=== PATIENT | male | born 1965 | race Caucasian/White ===

== ENCOUNTER 2017-07-06 09:16 | Inpatient (IN) | payer OTHER ==
--- NOTE | 2017-07-04 15:56 | GHP ---
[f rep st] PREOP HISTORY AND PHYSICAL DATE OF ADMISSION: 07/06/2017 PLANNED DATE OF ADMISSION: He will be an a.m. admission for surgery at [facility] on 07/06/2017. PROBLEM: Right hip arthritis. HISTORY OF PRESENT ILLNESS: The patient is a 52-year-old man admitted for a right hip Julito hip resurfacing arthroplasty. He has had progressive pain in both hips for the past 5 years. His right hip is more painful than the left. He has had to eliminate impact activities. His hips are very pa inful after exercise. He uses to tumeric, which is helpful. He has tried ibuprofen in the past, but it upsets his stomach. He has trouble putting on his shoes and socks. He has not had any cortisone injections. He has failed nonsurgical treatment and is admitted for a right hip [place] hip resu rfacing arthroplasty. PAST MEDICAL HISTORY: Overall, he is in excellent general health. He has exercise-induced asthma. No history of heart disease, stents, DVT, hepatitis, sleep apnea, or bleeding problems. CURRENT MEDICATIONS: He uses 2 different inhalers on a p.r.n. basis. ALLERGIES: Drug allergies: None. Metal allergy: None. Latex allergy: None. SOCIAL HISTORY: The patient is . 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 He does not smoke cigarettes and occasionally drinks alcohol. FAMILY HISTORY: Noncontributory. PHYSICAL EXAMINATION: GENERAL: He is a tall, fit-appearing man. VITAL SIGNS: Height 6 feet 4 inch es. Weight 235 pounds. BMI 28.6. EYES: The conjunctivae and sclerae are clear. Pupils are round and reactive. MOUTH: Good oral hygiene. No loose teeth. CHEST: Clear. HEART: Regular rhythm. No murmurs. EXTREMITIES: Pertinent findings are limited to his right hip. He has full hip extensio n and 100 degrees of flexion. As he flexes the right hip, he develops a 20-degree external rotation contracture and has about 10 additional degrees of external rotation. Abduction 20 degrees. IMAGING: His films show advanced degenerative arthritis in both hips. The right side is worse than the left. He is bone on bone on the right side. IMPRESSION ON ADMISSION: 1. Right hip advanced degenerative arthritis which is very symptomatic. He is prepared for a right hip Julito hip resurfacing arthroplasty. 2. Left hip moderate degenerative arthritis, which is moderately symptomatic. 3. Exercise-induced asthma. PLAN: He will undergo a right hip [place] hip resurfacing arthroplasty. The surgery has been betzaida cribed to him, including the risks, complications, expectations, and recovery time. I have talked to him about the risks of dislocation, femoral neck fracture, infection, and sciatic nerve injury. I duran nevarez discussed with him in detail the risk of elevated metal ions in the blood and in the soft tissues around the hip joint. I have also described to him a conventional total hip replacement and the pro s and cons of both procedures. He understands he is very young for any type of hip arthroplasty and will probably need revision surgery in the future. All his questions have been answered, and he cons ents to surgery. /[id number]/MODL
[~2017-07-06 09:16] MED LIST: NS IV ONE; POVIDONE-IODINE 20 ML in SODIUM CL IRRIG SOLUTION 500 ML IRR ONE; ROPIVACAINE 0.2% 80 MG, EPINEPHrine 0.2 MG, KETOROLAC TROMETHAMINE 30 MG in SYRINGE 0 ML IU ONE; TRANEXAMIC ACID IV ONE
[2017-07-06] MEDS ORDERED: DEXAMETHASONE 4 MG/ML VIAL IVP ONE (09:32)
[2017-07-06] MEDS ORDERED: FAMOTIDINE 20 MG TAB PO ONE (09:32)
[2017-07-06] MEDS ORDERED: ACETAMINOPHEN 325 MG TAB PO ONE (09:32)
[2017-07-06] MEDS ORDERED: ceFAZolin 2 GM/SWFI 2 GM/20 ML SYR IVP ONE (09:32)
[2017-07-06] MEDS ORDERED: GABAPENTIN 300 MG CAP PO ONE (09:32)
[2017-07-06] MEDS ORDERED: LIDOCAINE 1% 2 ML INJ ID PRN (09:34)
[2017-07-06] MEDS ORDERED: LR 1,000 ML IV ONE (09:34)
[2017-07-06] MEDS ORDERED: ceFAZolin 1 GM/5 ML SYR ONE (10:35)
[2017-07-06] MEDS ORDERED: VANCOMYCIN 1 GM VIAL ONE (10:35)
--- NOTE | 2017-07-06 11:06 | PDANEPAE ---
ANE History of Present Illness 52 year old male for right hip surfacing arthroplasty ANE Past Medical History - Cardiovascular History Hx Hypertension: No Hx Arrhythmias: No Hx Chest Pain: No Hx Coronary Artery / Peripheral Vascular Disease: No Hx CHF / Valvular Disease: No Hx Palpitations: No Cardiovascular History Comment: RUNS ELEV BP OCCAS CONTROLLED W/LIFESTYLE - Pulmonary History Hx COPD: No Hx Asthma/Reactive Airway Disease: Yes Hx Recent Upper Respiratory Infection: No Hx Oxygen in Use at Home: No Hx Sleep Apnea: No Sleep Apnea Screening Result - Last Documented: Negative Pulmonary History Comment: EXERCISE & ALLERGY INDUCED - Neurologic History Hx Cerebrovascular Accident: No Hx Seizures: No Hx Dementia: No - Endocrine History Hx Diabetes: No - Renal History Hx Renal Disorders: No - Liver History Hx Hepatic Disorders: No - Neurological & Psychiatric Hx Hx Neurological and Psychiatric Disorders: No - Cancer History Hx Cancer: No - Congenital Disorder History Hx Congenital Disorders: No - GI History Hx Gastrointestinal Disorders: No - Other Health History Other Health History: NEG - Chronic Pain History Chronic Pain: Yes (HIP PAIN) - Surgical History Prior Surgeries: L HAND SURGERY -PLATE & SCREWS ANE Review of Systems Review of Systems: - Exercise capacity METS (RN): 5 METS ANE Patient History - Allergies Allergies/Adverse Reactions: No Known Allergies Allergy (Unverified 06/21/17 17:23) - Home Medications Home Medications: Albuterol [Ventolin Hfa Inhaler] 1 - 2 puffs IH Q4 PRN 06/21/17 [Last Taken ] Budesonide/Formoterol 80/4.5 [Symbicort 80-4.5 Mcg Inhaler] 2 puffs IH BID 06/21 [Last Taken 07/04/17] Herbals/Supplements -Info Only 1 ea PO DAILY 06/21/17 [Last Taken 1 Week Ago ~] Acetaminophen [Tylenol 325mg (*)] 325 mg PO DAILY PRN 07/06/17 [Last Taken 07/05] - NPO status NPO Since - Liquids (Date): 07/06/17 NPO Since - Liquids (Time): 07:00 NPO Since - Solids (Date): 07/05/17 NPO Since - Solids (Time): 19:30 - Smoking Hx Smoking Status: Never smoked - Family Anes Hx Family Hx Anesthesia Complications: NEG ANE Labs/Vital Signs - Vital Signs Blood Pressure: 147/81 Heart Rate: 58 Respiratory Rate: 16 O2 Sat (%): 97 Height: 195.58 cm Weight: 106.594 kg ANE Physical Exam - Airway Mallampati Score: Class 2 Mouth exam: normal dental/mouth exam - Pulmonary Pulmonary: no respiratory distress - Cardiovascular Cardiovascular: regular rate and rhythym - ASA Status ASA Status: II (exercize induced asthma) ANE Anesthesia Plan Anesthesia Plan: MAC, spinal
--- NOTE | 2017-07-06 11:42 | PDHPUP ---
History & Physical Update H&P update statement: This history and physical update is based on an assessment of the patient which was completed after admission or registration (within 24 hours), but prior to the surgery/procedure. H&P update: H&P reviewed & patient examined, no change in patient's condition since H&P completed
[2017-07-06] MEDS ORDERED: PROPOFOL/EMULSION 500 MG/50 ML BOTTLE IV ONE ×2 (11:45→13:52)
[2017-07-06] MEDS ORDERED: MIDAZOLAM 2 MG/2 ML VIAL ONE ×2 (11:45→12:27)
[2017-07-06] MEDS ORDERED: HYDROmorphONE/DILAUDID 1 MG/ML INJ IVP PRN (14:03)
[2017-07-06] MEDS ORDERED: fentaNYL 100 MCG/2 ML INJ IVP PRN (14:03)
[2017-07-06] MEDS ORDERED: DEXAMETHASONE 4 MG/ML VIAL IVP PRN (14:03)
[2017-07-06] MEDS ORDERED: NALOXONE HCL 0.4 MG/ML INJ IVP PRN (14:03)
[2017-07-06] MEDS ORDERED: ONDANSETRON 4 MG/2 ML VIAL IVP PRN ×2 (14:03→14:52)
--- NOTE | 2017-07-06 14:03 | POSTANESTH ---
Post Anesthetic Evaluation Respiratory Status: Normal, Stable Level of Consciousness/Mental Status: Can Participate in Eval Pain Control: Adequate, Prn Tx Ordered Nausea/Vomiting Control: Adequate, Prn Tx Ordered Complications Possibly Related to Anesthesia: None Noted
--- NOTE | 2017-07-06 14:36 | POSTOPPROG ---
Post Op Note Date of Operation: 07/06/17 Surgeon: Cruz Eric Director Of Retail Analytics: Elan Vann/Balaji Newman Anesthesiologist: Luma Anesthesia: GET(General Endotracheal), Spinal Post-op Diagnosis: Right hip severe degenerative arthritis. Procedure: Right hip Julito hip resurfacing arthroplasty. Inf/Abcess present in the surg proc area at time of surgery?: No EBL: 100-500
[2017-07-06] MEDS ORDERED: ALBUTEROL 200 PUFFS/18 GM MDI IH PRN (14:51)
[2017-07-06] MEDS ORDERED: NS 500 ML IV PRN (14:52)
[2017-07-06] MEDS ORDERED: TEMAZEPAM 15 MG CAP PO PRN (14:52)
[2017-07-06] MEDS ORDERED: BISACODYL 10 MG SUPP PR PRN (14:52)
[2017-07-06] MEDS ORDERED: CYCLOBENZAPRINE 10 MG TAB PO PRN (14:52)
[2017-07-06] MEDS ORDERED: METOCLOPRAMIDE 10 MG/2 ML VIAL IVP PRN (14:52)
[2017-07-06] MEDS ORDERED: diphenhydrAMINE 25 MG CAP PO PRN (14:52)
[2017-07-06] MEDS ORDERED: PROMETHAZINE HCL 25 MG/ML INJ IVP PRN (14:52)
[2017-07-06] MEDS ORDERED: LACTULOSE 20 GM/30 ML UDCUP PO PRN (14:52)
[2017-07-06] MEDS ORDERED: PROMETHAZINE HCL 25 MG SUPPR PR PRN (14:52)
[2017-07-06] MEDS ORDERED: KETOROLAC 30 MG/1 ML SDV IVP PRN (14:52)
[2017-07-06] MEDS ORDERED: DIPHENOXYLATE/ATROPINE LOMOTIL 1 TAB PO PRN (14:52)
[2017-07-06] MEDS ORDERED: MAGNESIUM HYDROXIDE 30 ML UDCUP PO PRN (14:52)
[2017-07-06] MEDS ORDERED: ONDANSETRON DISINTEGRATING 4 MG TAB PO PRN (14:52)
[2017-07-06] MEDS ORDERED: POLYETHYLENE GLYCOL 3350 17 GM PKT PO PRN (14:52)
[2017-07-06] MEDS ORDERED: LR 1,000 ML IV SCH (15:00)
--- NOTE | 2017-07-06 16:04 | GOP ---
[f rep st] OPERATIVE REPORT DATE OF OPERATION: 07/06/2017 SURGEON: Cruz Eric MD COST CONTROL ANALYST: Elan Vann CFA and Balaji Newman. ANESTHESIA: Combination of Marcaine, spinal, and IV sedation by Dr. Corby eG. PREOPERATIVE DIAGNOSIS: Right hip severe degenerative arthritis. POSTOPERATIVE DIAGNOSIS: Right hip severe degenerative arthritis. PROCEDURE PERFORMED: Right hip Julito hip resurfacing arthroplasty. FINDINGS: DESCRIPTION OF PROCEDURE: The patient was given 2 g of IV Ancef within 60 minutes of surgery. He al so received IV tranexamic acid at a dose of 20 mg/kg. He was placed on the operating room table and given spinal anesthesia with Marcaine by Dr. Ge. He was then placed supine and given IV sedati on. A Gonzalez catheter was not used. He wore a ABBE stocking and an SCD on the nonoperative leg. He was rolled to the left lateral decubitus position. An axillary roll was used, and all pressure po ints were carefully padded. The position was secured with the pegboard table attachment. I was care ful to lock his pelvis in a vertical position. His perineum was isolated with plastic adhesive drape s. He is big muscular man which made positioning difficult. Height 6 feet 4 inches. Weight 235 karley nds. The [employer] time-out was performed to verify the correct patient identity and the c orrect surgical side and site. The [place] time-out was also performed. I made an 8-inch straight oblique posterolateral hip skin incision. Subcutaneous tissues were sharpl y divided and hemostasis was obtained using electrocautery. The fascia israel was identified and split along the axis of its fibers. I then curved posteriorly and proximally, and split the fascia of the gluteus eugenio and bluntly split the muscle fibers in line with their orientation. His sciatic ner ve was identified and protected throughout the procedure. The Charnley self-retaining retractor was inserted. The external rotators and the posterior hip capsule were divided as separate layers at the base of the femoral neck, tagged, and reflected posteriorly. The gluteus eugenio tendon was divided and tagged in order to improve exposure and release tension on the sciatic nerve. His hip was dislocated posteriorly. I used a sizing gauge to check the diameter of the neck and conc luded that the 54 mm was the proper head size. I performed a complete circumferential capsulotomy. I was able to retract the femoral head anteriorly and superiorly, and hold it out of place with appro priate retractors. The remnant of his damaged labrum was excised. His acetabulum was reamed sequent ially up to 60 mm. I selected the [place] monoblock porous-coated acetabular component with an outside diameter of 60 mm. This was firmly impacted and was a very tight fit. I was careful to determine proper inclinati on and anteversion. I used the transverse acetabular ligament and other acetabular bony landmarks to help me determine proper cup orientation. I was careful to leave a good lip of bone and capsule ext ending beyond the anterior-inferior lip of the metal cup. Then returned to preparation of the femoral head. Using appropriate jigs and guides, I inserted a gu brayan pin into the femoral head and neck. I was careful to position in such a way that there would be no notching of the neck. The large sterile metal goniometer was used to check the neck-shaft angle. I reamed over the guide pin and inserted the reaming guide. I then used the cylindrical reamer down to the head and neck junction. This was followed by the flat reamer and the chamfer reamer. The he ad was sized for 54 mm. There was no impingement or damage to the neck. He had some large, hard ant erior neck osteophytes which I trimmed with a rongeur. I drilled a small hole in the lesser trochant er and inserted a suction cannula to create negative pressure in the medullary canal. Small holes we re drilled on the flat and chamfer surfaces of the prepared head for cement anchors. The head was thoroughly cleaned with the pulsating lavage and carefully dried. I used the CarboJet d evice to blow dry the cancellous surfaces. A single batch of Simplex cement with tobramycin was mixe d. At about 50 seconds, I poured the liquid cement into the head component, inserted it onto the fem oral head and impacted it into place. Excess cement was removed before it hardened. The acetabulum was irrigated, cleaned, and inspected, and the hip was reduced. Stability and range o f motion were checked. I placed my finger along the anterior aspect of the acetabular component and flexed the hip to 110 degrees. There was no anterior impingement. The suction cannula in the lesser trochanter was removed. The wound was thoroughly irrigated with a dilute Betadine solution. 40 mL of the joint anesthetic cocktail were injected into the capsule, the deep musculature, and the subcut aneous tissues along the skin edges. His sciatic nerve was reinspected and looked unharmed. The external rotators and the posterior hip c apsule were repaired with two #2 FiberWire sutures through drill holes in the greater trochanter. Th e gluteus eugenio tendon was repaired with two #2 [id number] FiberWire sutures. The fascia israel was repaired first with 2 interrupted [id number] #2 FiberWire sutures, followed by a running #2 barbed Ethicon Stratafix PDO suture. Subcutaneous tissues were closed with a running 0 barbed Ethic on Stratafix Monoderm suture. The skin was closed with a running 3-0 barbed Ethicon Stratafix Monode rm subcuticular suture. The skin edges were reapproximated and sealed with Dermabond glue. The woun d was covered with a large sterile Mepilex waterproof dressing. The estimated blood loss was 400 mL. I used the Julito hip resurfacing system. The acetabular component was 60 mm in diameter and pre ss-fit. The femoral head was 54 mm and cemented. He was awakened from anesthesia and rolled to the supine position on his [facility]. A long-leg compressive stocking and SCD were applied to the operative leg. He wore a stocking and an SCD on th e opposite leg during the procedure. An abduction pillow was placed between his knees. He was awakened from anesthesia, and transferred to his [facility] and taken to PACU in satisfac tory condition. There were no recognized intraoperative complications. The sponge and needle count were correct on 2 occasions. Elan Vann and Balaji Newman acted as surgical assistants. Their assistance was a medical necess ity for safe completion of the procedure. Copy requested to: Dr. Cruz Galvni [place] /[id number]/MODL
[2017-07-06] MEDS: ACETAMINOPHEN 325 MG TAB PO SCH ×2 (18:06→23:58)
[2017-07-06] MEDS: FAMOTIDINE 20 MG TAB PO SCH (20:07)
[2017-07-06] MEDS: SENNOSIDES/DOCUSATE SODIUM TAB PO SCH (20:07)
[2017-07-06] MEDS: TRANEXAMIC ACID 650 MG TAB PO SCH (20:07)
[2017-07-06] MEDS: ASPIRIN EC 325 MG TAB PO SCH (20:08)
[2017-07-06] MEDS: traMADol 50 MG TAB PO PRN (20:17)
[2017-07-06] MEDS: ceFAZolin 2 GM/DEXTROSE 100 ML IV SCH (20:17)
[2017-07-06] MEDS: oxyCODONE IR 5 MG TAB PO PRN (21:41)
[2017-07-06] MEDS: BUDESONIDE/FORMOTEROL 80/4.5 60 PUFFS/MDI IH SCH (21:42)
[2017-07-06 23:15] VITALS: PULSE 56
[2017-07-07] MEDS: TRANEXAMIC ACID 650 MG TAB PO SCH ×2 (03:46→11:17)
[2017-07-07] MEDS: oxyCODONE IR 5 MG TAB PO PRN (03:48)
[2017-07-07 04:57] VITALS: TEMP 98.1
[2017-07-07] MEDS: ceFAZolin 2 GM/DEXTROSE 100 ML IV SCH (06:42)
[2017-07-07] MEDS: ACETAMINOPHEN 325 MG TAB PO SCH ×2 (06:42→11:18)
[2017-07-07] MEDS: traMADol 50 MG TAB PO PRN (06:55)
--- NOTE | 2017-07-07 07:37 | SOAPPROG ---
SOAP Progress Note Assessment/Plan: Assessment: Afebrile. Awake and alert. He has been walking in the room. Voiding spontaneously. Postop films look excellent. Postop hemoglobin hematocrit are good. Sciatic nerve intact. Plan: Up with physical therapy. Discharge later today. 07/07/17 07:36 Objective: Vital Signs Temp Pulse Resp BP Pulse Ox 36.7 C 56 L 18 114/71 95 07/07/17 04:00 07/06/17 23:15 07/07/17 04:00 07/07/17 04:00 07/07/17 04:00 Laboratory Results 07/07/17 04:55 07/06/17 07/07/17 07/08/17 05:59 05:59 05:59 Intake Total 3340 Output Total 1050 Balance 2290 ICD10 Worksheet Patient Problems: Problems Problem Status Onset Osteoarthritis of right hip Acute
[2017-07-07 07:46] VITALS: BP 143/72; RESP 12; O2SAT 97
--- NOTE | 2017-07-07 07:57 | GDS ---
[f rep st] DISCHARGE SUMMARY ADMISSION DIAGNOSIS: Right hip severe degenerative arthritis. DISCHARGE DIAGNOSIS: Right hip severe degenerative arthritis. OPERATION PERFORMED: 07/06/2017, right hip [place] hip resurfacing arthroplasty. POSTOPERATIVE COMPLICATIONS: None. CONDITION ON DISCHARGE: Improved. DESCRIPTION OF HOSPITAL COURSE: The patient was admitted to the hospital on the morning of surgery. His preoperative CBC was normal. Under a combination of Marcaine, spinal, and IV sedation, he under went a right hip Julito hip resurfacing. Postoperatively he was treated with multimodal DVT prop hylaxis, including aspirin and early mobilization. On the first postoperative day, hemoglobin and he matocrit were 13.4 and 39.4. He was seen by Physical Therapy and made good progress with ambulation and stairs. DISPOSITION: The patient discharged to his home in [place]. He will go to outpatient physical the rapy in [place]. I will see him back in the office on July 25, 2017. Use ABBE stockings for 1 w tazlina. He has prescriptions for tramadol and oxycodone for pain control. He is to call me at the [facility] if he has any problems. Copy requested to: Dr. Lyla Haji, [place] /[id number]/MODL
[2017-07-07] MEDS: BUDESONIDE/FORMOTEROL 80/4.5 60 PUFFS/MDI IH SCH (08:06)
[2017-07-07] MEDS: FAMOTIDINE 20 MG TAB PO SCH (08:47)
[2017-07-07] MEDS: SENNOSIDES/DOCUSATE SODIUM TAB PO SCH (08:47)
[2017-07-07] MEDS: ASPIRIN EC 325 MG TAB PO SCH (08:47)
[2017-07-07] MEDS ORDERED: FERROUS SULFATE 140 MG TAB.ER PO SCH (09:00)
--- NOTE | 2017-07-07 10:18 | ASMTCMCOM ---
CM Note CM Note Notes: Pt medically stable for d/c, no CM d/c needs identified. PT rec outpatient. Date Signed: 07/07/2017 10:18 AM Electronically Signed By:HELENA Mccrary
--- NOTE | 2017-07-07 16:12 | ASDISCHSUM ---
Discharge Information Plan Status:Home with No Needs Medically Cleared to Leave: Discharge Date:07/07/2017 11:53 AM CM D/C Disposition:Home, Routine, Self-Care ADT D/C Disposition:Home, Routine, Self-Care Projected Discharge Date:07/07/2017 11:53 AM Transportation at D/C: Discharge Delay Reason: Follow-Up Date:07/07/2017 11:53 AM Discharge Slot: Final Diagnosis: Placement Information Patient Contact Information Contact Name:AMBIKA Relationship: Address:[address] [place] [address] City:[facility] Phone: [facility]/Zip Code:[place] [address] Email: Financial Information Financial Class:HMO and PPO Plans Primary Plan Desc:[employer] Primary Plan Number:[id number] Secondary Plan Desc: Secondary Plan Number: Assessment Information CM Rubbish Collector Assessment CM Note CM Note Notes: Cruz is traveling from [place] for the surgery. He is looking to discharge back home with his . He was not aware that he will need a walker, so I provided him with a list of loan closets and expressed the importance of mobility equipment for the recovery process. He does not anticipate needing home health care services. Date Signed: 06/24/2017 12:23 PM Electronically Signed By:Kirstin Robledo [facility] CM Progress Note CM Note CM Note Notes: Pt medically stable for d/c, no CM d/c needs identified. PT rec outpatient. Date Signed: 07/07/2017 10:18 AM Electronically Signed By:HELENA Mccrary Intervention Information
== END 2017-07-07 11:53 | disposition home or self-care (01) | DRG 470 ==
LOC: F3N 09:16
PROVIDERS: ADMIT Orthopaedic Surgery; ATTEND Orthopaedic Surgery
PROC: 0SU90BZ Supplement Right Hip Joint with Resurfacing Device, Open Approach (ICD-10-PCS; principal; 2017-07-06 11:15)
DX: M16.11 Unilateral primary osteoarthritis, right hip (principal)
CPT/HCPCS: 97161-GP; 97165-GO; C1713; J0171; J0690; J1100; J1885; J2250; J2704; J2795; J3370